=== PATIENT | male | born 1965 | race American Indian/Alaskan Native ===

== ENCOUNTER 2017-06-05 20:55 | Emergency (ER) | payer OTHER, SELFPAY ==
[2017-06-05 22:02] LABS: Basophils % (Auto) 0.9 % (0.0-1.8); Hematocrit 41.2 % (35.5-45.6); Hemoglobin 13.8 gm/dl (11.8-15.2); Mean Corpuscular HGB Conc 34 % (32-34); Mean Corpuscular Hemoglobin 27 pg (28-32); Mean Corpuscular Volume 80 fl (84-94); Platelet Count 309 K/mm3 (140-440); Red Blood Count 5.19 M/mm3 (3.65-5.03); Red Cell Distribution Width 14.5 % (13.2-15.2); White Blood Count 5.7 K/mm3 (4.5-11.0)
[2017-06-05 22:13] LABS: Anion Gap 16 mmol/L; BUN/Creatinine Ratio 15.83; Blood Urea Nitrogen 19 mg/dL (9-20); Calcium 8.6 mg/dL (8.4-10.2); Carbon Dioxide 26 mmol/L (22-30); Chloride 102.3 mmol/L (98-107); Glucose 93 mg/dL (75-100); Potassium 3.6 mmol/L (3.6-5.0); Sodium 141 mmol/L (137-145)
--- NOTE | 2017-06-05 22:47 | Ultrasound Report ---
FINAL REPORT PROCEDURE: US TESTICULAR DOPPLER COMP TECHNIQUE: Real-time mueller-scale and color flow Doppler sonography in multiple planes of the scrotum, testicles, and epididymes was performed. Velocity spectral waveform analysis Doppler imaging of the arterial inflow and venous outflow of the testicles was performed with image documentation. CPT 47371 and 16579 History bilateral groin pain COMPARISON: No prior studies are available for comparison. FINDINGS: RIGHT TESTICLE: Size: 3.9 x 2.2 x 2.9 cm . Appearance: Normal size and echotexture . Arterial blood flow: Normal spectral waveforms, flow velocities and color flow images.. Venous blood flow: Normal spectral waveforms and color flow images. Right epididymis: Normal size and echotexture . Hydrocele: None . LEFT TESTICLE Size: 4.1 x 2.2 x 3.0 cm . Appearance: Normal size and echotexture . Arterial blood flow: Normal spectral waveforms, flow velocities and color flow images.. Venous blood flow: Normal spectral waveforms and color flow images. Leftepididymis: Normal size and echotexture . Hydrocele: None . IMPRESSION: Unremarkable study
[2017-06-05 23:27] LABS: Bilirubin,Urine SM (Negative); Blood,Urine NEG (Negative); Ketones,Urine TR mg/dL (Negative); Leukocyte Esterase,Urine NEG (Negative); Mucus,Urine 3+ /HPF; Nitrite,Urine NEG (Negative)
--- NOTE | 2017-06-06 01:33 | Emergency Department Report ---
HPI - General Chief Complaint: Urogenital-Male Time Seen by Provider: 06/06/17 01:13 - HPI HPI: This is a 51-year-old -[place] male presents to the emergency department with complaint of intermittent but progressively worsening pain to the right side of the groin. Sometimes it is in the inside of the right leg and other times it feels like it is underneath the scrotum and/or testicles. He denies any problems with urination, bowel movements. He denies any fever, rash, lesions or any trauma or injury to these areas. Sometimes the pain is exacerbated by walking or certain movements. He has been using ibuprofen and/ or Aleve for his symptoms which does provide some temporary relief. He otherwise does not have any past medical history. No recent travel or sick contacts at home. ED Past Medical Hx - Past Medical History Hx Hypertension: Yes Hx Psychiatric Treatment: Yes (Bi-polar) - Social History Smoking Status: Never Smoker Substance Use Type: None - Medications Home Medications: Home Medications Medication Instructions Recorded Confirmed Last Taken Type Meclizine [Antivert] 25 mg PO TID PRN #30 tablet 06/13/14 Unknown Rx amLODIPine [Norvasc] 5 mg PO DAILY #30 tab 08/14/16 Unknown Rx HYDROcodone/APAP 5-325 [Bogart 1 each PO Q6HR PRN #15 tablet 06/06/17 Unknown Rx 5-325 mg TAB] Ibuprofen [Motrin 800 MG tab] 800 mg PO Q8HR PRN #30 tablet 06/06/17 Unknown Rx ED Review of Systems ROS: Stated complaint: GROIN PAIN Other details as noted in HPI Comment: All other systems reviewed and negative Constitutional: denies: chills, fever Eyes: denies: eye pain, eye discharge, vision change ENT: denies: ear pain, throat pain Respiratory: denies: cough, shortness of breath, wheezing Cardiovascular: denies: chest pain, palpitations Gastrointestinal: denies: abdominal pain, nausea, diarrhea Genitourinary: testicular pain. denies: urgency, dysuria Musculoskeletal: arthralgia, myalgia Skin: denies: rash, lesions Neurological: denies: headache, weakness, paresthesias Physical Exam - Physical Exam Vital Signs: Vital Signs 06/05/17 21:20 Temperature 98.4 F Pulse Rate 68 Respiratory 18 Rate Blood Pressure 127/92 Blood Pressure 127/92 [Left] O2 Sat by Pulse 100 Oximetry Physical Exam: GENERAL: The patient is well-developed well-nourished. HEENT: Normocephalic. Atraumatic. Extraocular motions are intact. Patient has moist mucous membranes. Pupils equal reactive to light bilaterally. NECK: Supple. Trachea is midline. CHEST/LUNGS: Clear to auscultation. There is no respiratory distress noted. HEART/CARDIOVASCULAR: Regular. There is no tachycardia. There is no gallop rub or murmur. ABDOMEN: Abdomen is soft, nontender. Patient has normal bowel sounds. There is no abdominal distention. SKIN: Skin is warm and dry. : Normal-appearing penis and scrotum/testicles. No tenderness to palpation. No palpable inguinal hernia. NEURO: The patient is awake, alert, and oriented. The patient is cooperative. The patient has no focal neurologic deficits. The patient has normal speech and gait. MUSCULOSKELETAL: There is no tenderness or deformity. There is no limitation range of motion. There is no evidence of acute injury. ED Course Vital Signs 06/05/17 21:20 Temperature 98.4 F Pulse Rate 68 Respiratory 18 Rate Blood Pressure 127/92 Blood Pressure 127/92 [Left] O2 Sat by Pulse 100 Oximetry ED Medical Decision Making - Lab Data Result diagrams: 06/05/17 21:39 06/05/17 21:39 - Radiology Data Radiology results: report reviewed Testicular/scrotal ultrasound does not show any torsion and is a normal examination. - Medical Decision Making 51-year-old male presents with some pain to the inside of the right medial thigh and sometimes just underneath the scrotum/testicles. Ultrasound does not show any torsion and is a normal examination. It is a normal genital exam and there is no palpable or visible hernia. Labs are unremarkable. This could be a musculoskeletal issue with some level of spasm or strain to the iliopsoas or piriformis. This could be some type of neuropathy. However this does not appear to be an emergent condition and does not require admission at this time. The patient will be given some pain medication to be used when his discomfort is not controlled with NSAIDs. He'll be given a referral for multiple primary care clinics in the area. He will return to the ER with any worsening of his symptoms or any acute distress. - Differential Diagnosis torsion, hernia, musculoskeletal pain, neuropathy Critical Care Time: No Critical care attestation.: If time is entered above; I have spent that time in minutes in the direct care of this critically ill patient, excluding procedure time. ED Disposition Clinical Impression: Pain in superior right lower extremity Groin pain Qualifiers: Laterality: right Qualified Code(s): R10.31 - Right lower quadrant pain Disposition: TO HOME OR SELFCARE Is pt being admited?: No Condition: Stable Instructions: Groin Pain (ED), Arthralgia (ED) Additional Instructions: Please follow-up with a primary care physician in the next few days if possible. Return to the emergency department with any worsening of your symptoms or any acute distress. You've been prescribed a medication that is sedating. Therefore this medication cannot be mixed with alcohol, or taken prior to driving, working, or being responsible for children. I suggest that you research some other musculoskeletal conditions such as piriformis syndrome and/or iliopsoas stretches see if this helps with your discomfort. Prescriptions: HYDROcodone/APAP 5-325 [Bogart 5-325 mg TAB] 1 each PO Q6HR PRN #15 tablet PRN Reason: Pain Ibuprofen [Motrin 800 MG tab] 800 mg PO Q8HR PRN #30 tablet PRN Reason: Pain Referrals: PRIMARY CARE, [Primary Care Provider] - 3-5 Days [facility] [Outside] - 3-5 Days [facility] [Outside] - 3-5 Days [facility] [Outside] - 3-5 Days [facility] [Outside] - 3-5 Days Time of Disposition: 01:34
[2017-06-06 01:50] VITALS: BP 123/89
== END 2017-06-06 01:53 | disposition home or self-care (01) ==
LOC: ED 20:55
DX: R10.30 Lower abdominal pain, unspecified (principal); M79.604 Pain in right leg; I10 Essential (primary) hypertension
CPT/HCPCS: 36415; 80048; 81001; 85025; 93975; 99284

== ENCOUNTER 2018-12-21 21:04 | Emergency (ER) | payer MEDICARE ==
--- NOTE | 2018-12-21 21:19 | Emergency Department Report ---
Blank Doc - Documentation Documentation: This is a 53-year-old male that presents with chest pain. Patient stated all day he was doing crack and alcohol. This initial assessment diagnostic orders/clinical plan/treatment(s) is/are subject to change based on patient's health status, clinical progression and re-assessment by fellow clinical providers in the ED. Further treatment and workup at subsequent clinical providers discretion. Patient/guardians urged not to elope from ED s their condition may be serious if not clinically assessed and managed. Initial orders include: 1-Patient sent to MAIN for further evaluation and treatment 2- labs 3- EKG 4- CXR
[2018-12-21 21:42] LABS: Hemoglobin 14.5 gm/dl (11.8-15.2); Mean Corpuscular HGB Conc 33 % (32-34); Mean Corpuscular Volume 84 fl (84-94); Platelet Count 354 K/mm3 (140-440); Red Blood Count 5.27 M/mm3 (3.65-5.03); Red Cell Distribution Width 14.3 % (13.2-15.2)
--- NOTE | 2018-12-21 21:53 | Emergency Department Report ---
ED Chest Pain HPI - General Chief Complaint: Chest Pain Stated Complaint: CHEST PAIN DRUGS Time Seen by Provider: 12/21/18 21:15 Source: patient Mode of arrival: Ambulatory Limitations: No Limitations - History of Present Illness Initial Comments: 53-year-old male with history of bipolar disorder presents to ED with complaint of suicidal ideations and chest pain. Patient states he has been drinking for "weeks." States he relapsed and used crack cocaine as well. Patient reported suicidal ideations with plan to overdose on pills. She reports sharp left-sided chest pain x 1 week, intermittent. Denies any aggravating or alleviating factors. Denies leg swelling, fever, shortness of breath, diaphoresis. Patient states he is off his bipolar medication and his suicidality is what made him come to the ER, not his chest pain. Patient denies chest pain at this time. MD Complaint: chest pain -: week(s) (1) Onset: during rest Pain Location: left chest Pain Radiation: none Severity: moderate Severity scale (0 -10): 4 Quality: sharp Consistency: intermittent Improves With: nothing Worsens With: nothing re: denies: nausea, vomting, diaphoresis, dyspnea Other Symptoms: denies: cough, fever, leg swelling - Related Data Home Medications Medication Instructions Recorded Confirmed Last Taken DULoxetine [Cymbalta] 30 mg PO BID 12/21/18 12/21/18 Unknown Divalproex Sodium [Depakote] 500 mg PO DAILY 12/21/18 12/21/18 Unknown Omeprazole 40 mg PO DAILY 12/21/18 12/21/18 Unknown Allergies Allergy/AdvReac Type Severity Reaction Status Date / Time No Known Allergies Allergy Verified 04/15/16 14:06 Heart Score - HEART Score History: Slightly suspicious EKG: Normal Age: 45-65 Risk factors: 1-2 risk factors Troponin: < normal limit HEART Score: 2 - Critical Actions Critical Actions: 0-3 pts:0.9-1.7%risk of adverse cardiac event.Candidate for discharge ED Review of Systems ROS: Stated complaint: CHEST PAIN DRUGS Other details as noted in HPI Comment: All other systems reviewed and negative Constitutional: denies: chills, fever Respiratory: denies: shortness of breath Cardiovascular: chest pain Musculoskeletal: other (denies leg pain and swelling) Psychiatric: depression, suicidal thoughts ED Past Medical Hx - Past Medical History Hx Hypertension: Yes Hx Psychiatric Treatment: Yes (Bi-polar) - Surgical History Past Surgical History?: No - Social History Smoking Status: Current Every Day Smoker Substance Use Type: Alcohol, Cocaine - Medications Home Medications: Home Medications Medication Instructions Recorded Confirmed Last Taken Type DULoxetine [Cymbalta] 30 mg PO BID 12/21/18 12/21/18 Unknown History Divalproex Sodium [Depakote] 500 mg PO DAILY 12/21/18 12/21/18 Unknown History Omeprazole 40 mg PO DAILY 12/21/18 12/21/18 Unknown History ED Physical Exam - General Limitations: No Limitations General appearance: alert, in no apparent distress - Head Head exam: Present: atraumatic, normocephalic - Eye Eye exam: Present: normal appearance - ENT ENT exam: Present: mucous membranes moist - Neck Neck exam: Present: normal inspection - Respiratory Respiratory exam: Present: normal lung sounds bilaterally, chest wall tenderness. Absent: respiratory distress - Cardiovascular Cardiovascular Exam: Present: regular rate, normal rhythm - GI/Abdominal GI/Abdominal exam: Present: soft. Absent: distended, tenderness - Extremities Exam Extremities exam: Present: normal inspection. Absent: pedal edema, calf tenderness - Neurological Exam Neurological exam: Present: alert, oriented X3 - Psychiatric Psychiatric exam: Present: flat affect, suicidal ideation - Skin Skin exam: Present: warm, dry, intact, normal color ED Course Vital Signs 12/21/18 12/21/18 21:19 22:30 Temperature 98 F 98.1 F Pulse Rate 93 H 69 Respiratory 20 14 Rate Blood Pressure 163/103 Blood Pressure 156/104 [Left] O2 Sat by Pulse 99 100 Oximetry ED Medical Decision Making - Lab Data Result diagrams: 12/21/18 21:20 12/21/18 21:20 - EKG Data -: EKG Interpreted by De EKG shows normal: sinus rhythm, axis, intervals, QRS complexes, ST-T waves Rate: normal - EKG Data Interpretation: no acute changes - Radiology Data Radiology results: report reviewed, image reviewed - Medical Decision Making 53-year-old male with history of bipolar disorder presents to ED with suicidal ideations and plan to overdose on pills. The patient also reported mild intermittent chest pain 1 week, denies shortness of breath. Patient has re producible chest wall tenderness on exam. EKG was normal, chest x-ray normal, troponins normal. Urine drug screen positive for cocaine and benzodiazepines. Patient has been comfortable, asleep here in the ED, does not appear to be in any acute distress or pain. Patient reported resolution of chest pain on arrival. Potassium was slightly low, so PO potassium was given. Patient placed on 1013. He is medically clear for mental health evaluation. Will dispo per psych. - Differential Diagnosis ACS, chest wall pain, bipolar d/o Critical care attestation.: If time is entered above; I have spent that time in minutes in the direct care of this critically ill patient, excluding procedure time. ED Disposition Clinical Impression: Medical clearance for psychiatric admission, Chest pain Disposition: [id number] PSY HOSP/PSY UNIT Is pt being admited?: No Condition: Stable Instructions: Chest Pain (ED) Referrals: PRIMARY CARE, [Primary Care Provider] - 3-5 Days
[2018-12-21 22:05] LABS: BUN/Creatinine Ratio 10; Blood Urea Nitrogen 10 mg/dL (9-20); Calcium 9.2 mg/dL (8.4-10.2)
[2018-12-21 22:06] LABS: Alanine Aminotransferase 33 units/L (7-56); Albumin 4.3 g/dL (3.9-5); Hemolysis Index 20
[2018-12-21 22:16] LABS: Bilirubin,Urine NEG (Negative); Blood,Urine SM (Negative); Color,Urine Yellow (Yellow); Mucus,Urine FEW /HPF; Urobilinogen,Urine < 2.0 mg/dL (<2.0); WBC,Urine < 1.0 /HPF (0.0-6.0)
[2018-12-21 22:36] LABS: Amphetamine Screen,Urine PRESUMPTIVE NEGATIVE; Cannabinoid Screen,Urine PRESUMPTIVE NEGATIVE; Methadone Screen,Urine PRESUMPTIVE NEGATIVE; Opiate Screen,Urine PRESUMPTIVE NEGATIVE
[2018-12-21 22:53] LABS: Benzodiazepines Screen,Urine PRESUMPTIVE POSITIVE; Cocaine Screen,Urine PRESUMPTIVE POSITIVE
--- NOTE | 2018-12-21 23:13 | XRay Report ---
FINAL REPORT EXAM: XR CHEST 1V AP HISTORY: chest pain TECHNIQUE: upright single view chest PRIORS: None. FINDINGS: Cardiac and mediastinal contours are unremarkable. No focal pulmonary infiltrate is identified. No pleural fluid collection seen. Pulmonary vasculature is unremarkable. IMPRESSION: No acute abnormality identified in the chest
[2018-12-22] MEDS ORDERED: K-DUR PO ONE (00:05)
[2018-12-22] MEDS ORDERED: PROTONIX PO ONE ×2 (05:50→05:55)
--- NOTE | 2018-12-22 12:57 | Consultation ---
History of Present Illness - Reason for Consult Consult date: 12/22/18 Reason for consult: Mental Health Evaluation Requesting physician: FANY KHOURY - Chief Complaint Chief complaint: "I am suicidal" - History of Present Psychiatric Illness 53-year-old AA male who presented to the ER for chest pain and SI's. Today the patient is calm and cooperative during the assessment. He stated that he is dealing with several life stressors at this time (marital problem and crack cocaine abuse). He stated that he's homeless and sleeping his truck since he from his a month ago. He stated that his cocaine usage has increased the past 2 weeks because he self medicate to lower his depression. He rate his depression 9/10, with 10 being the worse. He stated that he have been using cocaine for 30 yrs. He continue to endorse SI's, but denies a suicide plan at this time. He denies a hx of suicide attempts. He stated that he want to get back with his and stay clean from cocaine. He denies HI;s and AVH's. He denies any manic episodes in the past. He denies a poor appetite, but acknow ledged erratic sleep. He denies alcohol consumption (etoh). Medications and Allergies Allergies Allergy/AdvReac Type Severity Reaction Status Date / Time No Known Allergies Allergy Verified 04/15/16 14:06 Home Medications Medication Instructions Recorded Confirmed Last Taken Type DULoxetine [Cymbalta] 30 mg PO BID 12/21/18 12/21/18 Unknown History Divalproex Sodium [Depakote] 500 mg PO DAILY 12/21/18 12/21/18 Unknown History Omeprazole 40 mg PO DAILY 12/21/18 12/21/18 Unknown History Mental Status Exam - Vital signs Last Vital Signs Temp 98.1 F 12/21/18 22:30 Pulse 89 12/22/18 08:00 Resp 16 12/22/18 08:00 BP 143/97 12/22/18 08:00 Pulse Ox 100 12/22/18 08:00 - Exam Narrative exam: MSE: Appearance: calm, cooperative Behavior: regular eye contact Speech: regular rate and tone Mood: "depressed" Affect: flat Thought Process: linear Thought Content: denies HI's and AVH's Motor Activity: ambulatory Cognition: A/O x3 Insight: fair Judgment: poor Results Result Diagrams: 12/21/18 21:20 12/21/18 21:20 Abnormal lab results 12/21/18 12/21/18 12/21/18 Range/Units 21:20 21:20 22:41 RBC 5.27 H (3.65-5.03) M/mm3 MCH 27 L (28-32) pg Potassium 3.3 L (3.6-5.0) mmol/L Glucose 114 H (75-100) mg/dL AST 52 H (5-40) units/L Salicylates < 0.3 L (2.8-20.0) mg/dL Acetaminophen (10.0-30.0) ug/mL 12/21/18 Range/Units 22:41 RBC (3.65-5.03) M/mm3 MCH (28-32) pg Potassium (3.6-5.0) mmol/L Glucose (75-100) mg/dL AST (5-40) units/L Salicylates (2.8-20.0) mg/dL Acetaminophen < 5.0 L (10.0-30.0) ug/mL All other labs normal. Assessment and Plan Assessment and plan: Impression: MDD, Severe Type. Substance Use DO (cocaine). Today the patient is calm and cooperative during the assessment. DDx: R/O Substance Induced Mood DO Recommendation/Plan: Continue 1013 and start Remeron 15 mg PO HS for depression. Discussed possible suicidality/medication induced ulises with the patient reference Remeron. Dspo: The patient was referred to inpatient psy services. Will staff with Dr Simon.
[2018-12-22] MEDS ORDERED: TYLENOL PO ONE (21:19)
[2018-12-22] MEDS ORDERED: REMERON PO SCH (22:00)
[2018-12-23 03:51] VITALS: BP 147/99
== END 2018-12-23 07:12 ==
LOC: ED 21:04
DX: F32.9 Major depressive disorder, single episode, unspecified (principal); R45.851 Suicidal ideations; R07.9 Chest pain, unspecified; F31.9 Bipolar disorder, unspecified; F17.200 Nicotine dependence, unspecified, uncomplicated; F14.10 Cocaine abuse, uncomplicated
CPT/HCPCS: 36415; 71045; 80053; 80307; 81001; 84484; 85025; 93005; 93010; 99285; G0480; 80320

== ENCOUNTER 2020-03-04 14:08 | Emergency (ER) | payer MEDICARE ==
[2020-03-04 14:22] VITALS: BP 151/95
[2020-03-04 15:32] LABS: Basophils # (Auto) 0.1 K/mm3 (0.0-0.1); Basophils % (Auto) 0.8 % (0.0-1.8); Eosinophils # (Auto) 0.1 K/mm3 (0.0-0.4); Eosinophils % (Auto) 1.9 % (0.0-4.3); Hematocrit 41.5 % (35.5-45.6); Hemoglobin 13.9 gm/dl (11.8-15.2); Lymphocytes # (Auto) 1.9 K/mm3 (1.2-5.4); Lymphocytes % (Auto) 27.4 % (13.4-35.0); Mean Corpuscular HGB Conc 33 % (32-34); Mean Corpuscular Volume 81 fl (84-94); Monocytes # (Auto) 0.6 K/mm3 (0.0-0.8); Monocytes % (Auto) 8.3 % (0.0-7.3); Platelet Count 308 K/mm3 (140-440); Red Blood Count 5.14 M/mm3 (3.65-5.03); Red Cell Distribution Width 13.4 % (13.2-15.2)
[2020-03-04 15:42] LABS: BUN/Creatinine Ratio 15; Blood Urea Nitrogen 17 mg/dL (9-20); Calcium 9.3 mg/dL (8.4-10.2); Hemolysis Index 5
--- NOTE | 2020-03-04 16:05 | XRay Report ---
CHEST 1 VIEW 2:48 PM INDICATION / CLINICAL INFORMATION: Chest Pain. COMPARISON: 12/21/18. FINDINGS: SUPPORT DEVICES: None. HEART / MEDIASTINUM: The heart size and pulmonary vasculature are normal. There is mild aortic tortuo sity without aneurysm. LUNGS / PLEURA: No significant pulmonary or pleural abnormality. No pneumothorax. ADDITIONAL FINDINGS: There is mild thoracolumbar scoliosis. IMPRESSION: No acute abnormality or significant change. Signer Name: Oscar Jurado MD Signed: 03/04/2020 4:00 PM Workstation Name: [id number]
== END 2020-03-04 16:19 | disposition left against medical advice (07) ==
LOC: ED 14:08
DX: R07.9 Chest pain, unspecified (principal); R10.9 Unspecified abdominal pain; Z53.21 Procedure and treatment not carried out due to patient leaving prior to being seen by health care provider
CPT/HCPCS: 36415; 71045; 80048; 84484; 85025; 93005

== ENCOUNTER 2021-06-08 19:51 | Emergency (ER) | payer MEDICARE ==
[2021-06-08 20:06] VITALS: BP 118/92
--- NOTE | 2021-06-08 20:25 | XRay Report ---
CHEST 2 VIEWS INDICATION: Chest Pain. COMPARISON: 03/04/2020 FINDINGS: Support devices: None. Heart: Within normal limits. Lungs/Pleura: No acute air space or interstitial disease. No significant pleural effusion. Moderate dextroconvex scoliosis with the apex at the mid thoracic spine. IMPRESSION: No acute findings. Signer Name: Murray Douglas MD Signed: 06/08/2021 8:21 PM Workstation Name: [id number]
[2021-06-08 20:31] LABS: Basophils # (Auto) 0.1 K/mm3 (0.0-0.1); Basophils % (Auto) 1.1 % (0.0-1.8); Eosinophils # (Auto) 0.2 K/mm3 (0.0-0.4); Eosinophils % (Auto) 3.7 % (0.0-4.3); Hematocrit 40.9 % (35.5-45.6); Hemoglobin 13.9 gm/dl (11.8-15.2); Lymphocytes % (Auto) 35.5 % (13.4-35.0); Mean Corpuscular HGB Conc 34 % (32-34); Mean Corpuscular Volume 83 fl (84-94); Monocytes # (Auto) 0.4 K/mm3 (0.0-0.8); Monocytes % (Auto) 6.5 % (0.0-7.3); Platelet Count 288 K/mm3 (140-440); Red Blood Count 4.93 M/mm3 (3.65-5.03)
[2021-06-08 20:51] LABS: BUN/Creatinine Ratio 10; Blood Urea Nitrogen 11 mg/dL (9-20); Calcium 9.1 mg/dL (8.4-10.2); Hemolysis Index 22
--- NOTE | 2021-06-08 21:04 | Emergency Department Report ---
ED General Adult HPI - General Chief complaint: Chest Pain Stated complaint: CHEST PAIN/LEFT ARM PAIN Time Seen by Provider: 06/08/21 20:50 Source: patient Mode of arrival: Ambulatory Limitations: No Limitations - History of Present Illness Initial comments: 55-year-old [id number] male patient with history of hypertension presents to the emergency department with complaints of intermittent left-sided chest pain and constant proximal left upper extremity pain for 1 week. No preceding fall, trauma, or injury. Patient describes the pain as a "burning sensation." Patient states he experienced similar symptoms a few months ago, at which time the symptoms resolved spontaneously. He has taken Tylenol, NSAIDs, and muscle relaxers with limited relief. No identifiable exacerbating or relieving factors. Patient was evaluated by department operations manager several years ago, at which time his stress test was normal. Last alcohol use was 2 days ago. States he does not use illicit drugs. Denies fever, chills, cough, shortness of breath, palpitations, nausea, vomiting, diaphoresis, lower extremity pain/swelling, syncope. Denies all other complaints at this time. - Related Data Home Medications Medication Instructions Recorded Confirmed Last Taken DULoxetine [Cymbalta] 30 mg PO BID 12/21/18 12/21/18 Unknown Divalproex Sodium [Depakote] 500 mg PO DAILY 12/21/18 12/21/18 Unknown Omeprazole 40 mg PO DAILY 12/21/18 12/21/18 Unknown Previous Rx's Medication Instructions Recorded Last Taken Type Naproxen 500 mg PO BID #20 tablet 06/09/21 Unknown Rx Allergies Allergy/AdvReac Type Severity Reaction Status Date / Time No Known Allergies Allergy Verified 04/15/16 14:06 ED Review of Systems ROS: Stated complaint: CHEST PAIN/LEFT ARM PAIN Other details as noted in HPI Other: GENERAL: Negative for fever, chills, weight change, anorexia, fatigue. ENT: Negative for ear pain, difficulty hearing, sore throat, nasal congestion, epistaxis. CARDIOVASCULAR: Positive for chest pain. PULMONARY: Negative for cough, dyspnea, wheezing, orthopnea, cyanosis. GASTROINTESTINAL: Negative for abdominal pain, nausea, vomiting, diarrhea, constipation. MUSCULOSKELETAL: Positive for left arm pain. NEUROLOGICAL: Negative for headache, seizure, syncope, paresthesias, weakness. INTEGUMENTARY: Negative for erythema, rash, diaphoresis, laceration, ecchymosis. HEMATOLOGICAL: Negative for hemoptysis, hematemesis, hematochezia, hematuria. PSYCHIATRIC: Negative for hallucinations, suicidal ideation, homicidal ideation, anxiety, depression. ED Past Medical Hx - Past Medical History Previous Medical History?: Yes Hx Hypertension: Yes Hx Psychiatric Treatment: Yes (Bi-polar) - Surgical History Past Surgical History?: No - Social History Smoking Status: Never Smoker Substance Use Type: None - Medications Home Medications: Home Medications Medication Instructions Recorded Confirmed Last Taken Type DULoxetine [Cymbalta] 30 mg PO BID 12/21/18 12/21/18 Unknown History Divalproex Sodium [Depakote] 500 mg PO DAILY 12/21/18 12/21/18 Unknown History Omeprazole 40 mg PO DAILY 12/21/18 12/21/18 Unknown History Naproxen 500 mg PO BID #20 tablet 06/09/21 Unknown Rx ED Physical Exam - General Limitations: No Limitations - Other Other exam information: General: Awake and alert. No acute distress. Head: Atraumatic, normocephalic. Eyes: EOMI. Pupils are equal and round. Normal sclera and conjunctiva. ENT: Oral mucosa is moist. Normal pharyngeal exam. Neck: Supple. No lymphadenopathy. Pulmonary: No respiratory distress. Clear to auscultation bilaterally. Cardiac: Tachycardic. Pulses are palpable and equal bilaterally. No lower extremity cyanosis or edema. Skin: Warm and dry. No rashes. Abdomen: Soft, non-tender, non-protuberant. No guarding, rigidity, or rebound. Bowel sounds are normal. No organomegaly or masses noted. Back: Normal alignment. No CVA tenderness. Extremities: Symmetrical. Full range of motion intact. Neurological: Alert and oriented, appropriately interactive, no focal deficits. Psych: Cooperative. Appropriate mood and affect. Speech is evenly metered. Thou ghts are logically construed. ED Course Vital Signs 06/08/21 06/09/21 20:05 00:20 Temperature 98.0 F Pulse Rate 106 H 87 Respiratory 16 17 Rate Blood Pressure 118/92 O2 Sat by Pulse 95 99 Oximetry ED Medical Decision Making - Lab Data Result diagrams: 06/08/21 20:08 06/08/21 20:08 - EKG Data 06/08/21 21:03 EKG shows sinus tachycardia with a ventricular rate of 102 bpm. Normal axis. First-degree AV block with WI interval of 208 ms. Good R wave progression. No ST segment changes. Improved as compared with prior tracing in March 2020. Over read by attending emergency physician, who agrees with this interpretation. - Medical Decision Making Differential diagnosis including but not limited to: acute coronary syndrome, cardiac arrhythmia, pericarditis, pericardial fusion/cardiac tamponade, pulmonar y embolism, musculoskeletal pain On re-evaluation, the patient is well-appearing, vital signs are stable, and pain is controlled. EKG without overt evidence of STEMI, Brugada syndrome, delta wave, significantly prolonged QT, or life-threatening arrhythmia. Supervising physician is in agreement with EKG interpretation. Initial troponin within normal limits. Low clinical suspicion for other life-threatening intrathoracic pathology including but not limited to: pulmonary embolism, aortic aneurysm/ dissection, pneumothorax, or pneumonia. The patient is at low risk (0.9%-2.7%) of experiencing a major cardiac event within the next six weeks according to the HEART score guidelines. The patient has no known history of coronary artery disease and is therefore a candidate for risk stratification using the HEART pathway. It has been explained to the patient that the HEART score/pathway are adjunct decision-making tools and are not designed to replace clinical judgment. Shared decision making was implemented and the patient has agreed to undergo additional testing as recommended by the HEART pathway guidelines. On reevaluation, patient remains stable. Repeat troponin within normal limits. D-dimer is within normal limits. Tachycardia resolved without intervention. History and exam findings suggestive of musculoskeletal pain. Patient be discharged home with appropriate symptomatic treatment and referred to both primary care provider and department operations manager for close outpatient follow-up. Patient expressed understanding and is agreeable to plan of care. Strict return precautions provided. Additionally, it has been explained to the patient that the primary purpose of this evaluation was to identify whether or not an acute coronary syndrome was present, and that the results of todays evaluation do not reliably exclude underlying coronary artery disease. Patient expressed understanding and was given the opportunity to ask questions, all of which were satisfactorily answered prior to discharge home. Written instructions and appropriate prescriptions/referrals provided. Critical care attestation.: If time is entered above; I have spent that time in minutes in the direct care of this critically ill patient, excluding procedure time. ED Disposition Clinical Impression: Nonspecific chest pain Disposition: DC-01 TO HOME OR SELFCARE Is pt being admited?: No Does the pt Need Aspirin: No Condition: Stable Instructions: Nonspecific Chest Pain, Adult Additional Instructions: Take Tylenol every 4 hours as needed for pain. Take Naprosyn twice daily with food as needed for pain. Follow-up with primary care provider and department operations manager this week. Call tomorrow to schedule an appointment. See referral information below. Return to the emergency department immediately for new or worsening symptoms. Prescriptions: Naproxen 500 mg PO BID #20 tablet Referrals: KATHY MCDONALD MD [Primary Care Provider] - 3-5 Days LYNNE SAEZ MD [Staff Physician] - 3-5 Days [facility] [Provider Group] - 3-5 Days Time of Disposition: 00:02 HEART Score - HEART Score History: Slightly suspicious EKG: Non-specific Age: 45-65 Risk factors: 1-2 risk factors Troponin: Troponin T < 0.010 ng/mL (0.00-0.029) 06/08/21 23:06 Troponin: < normal limit HEART Score: 3
[2021-06-08] MEDS ORDERED: ACETAMINOPHEN 500 MG TAB PO ONE (21:44)
[2021-06-08] MEDS ORDERED: POTASSIUM CHLORIDE ER 20 MEQ TAB PO ONE (21:44)
--- NOTE | 2021-06-09 14:32 | Electrocardiograph Report ---
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
== END 2021-06-09 00:20 | disposition home or self-care (01) ==
LOC: ED 19:51
DX: R07.9 Chest pain, unspecified (principal); I10 Essential (primary) hypertension; F31.9 Bipolar disorder, unspecified
CPT/HCPCS: 36415; 71046; 80048; 83735; 84484; 85025; 85379; 93005; 99284